=== PATIENT | male | born 1960 | race Caucasian/White ===

== ENCOUNTER 2022-02-24 09:41 | Outpatient (CLI) | payer OTHER, SELFPAY ==
[2022-02-24 13:36] LABS: Chloride* 107 mmol/L (96-114); Potassium* 4.5 mmol/L (3.6-5.1); Sodium* 139 mmol/L (135-149)
[2022-02-24 13:38] LABS: Estimated Glomerular Filt Rate 85 ml/min
[2022-02-24 13:39] LABS: Blood Urea Nitrogen* 19 mg/dL (7-30); Carbon Dioxide* 24 mmol/L (20-32); Glucose* 96 mg/dL (60-115)
[2022-02-24 13:40] LABS: Calcium* 8.8 mg/dL (8.4-10.6)
[2022-02-24 14:09] LABS: PSA Screen* 0.82 ng/mL (0.10-4.00)
== END 2022-02-24 09:42 | disposition home or self-care (01) ==
PROVIDERS: PCP Family Medicine; Visit Provider Family Medicine
DX: I10 Essential (primary) hypertension (principal); Z12.5 Encounter for screening for malignant neoplasm of prostate
CPT/HCPCS: 80048; 84153

== ENCOUNTER 2023-03-02 08:51 | Outpatient (CLI) | payer BC, SELFPAY | END 2023-03-02 08:52 | disposition home or self-care (01) | LOC: LONREF 08:54 | PROVIDERS: PCP Family Medicine; Visit Provider Family Medicine | DX: I10 Essential (primary) hypertension (principal) | CPT/HCPCS: 80048 ==

== ENCOUNTER 2023-10-16 10:30 | Outpatient (CLI) | payer BC, SELFPAY | END 2023-10-16 10:31 | disposition home or self-care (01) | LOC: LKVREF 10:30 | PROVIDERS: PCP Family Medicine; Visit Provider Family Medicine | DX: L29.9 Pruritus, unspecified (principal) | CPT/HCPCS: 80053 ==

== ENCOUNTER 2025-01-09 08:14 | Outpatient (CLI) | payer BC, SELFPAY | END 2025-01-09 08:15 | disposition home or self-care (01) | PROVIDERS: PCP Family Medicine; Visit Provider Family Medicine | DX: I10 Essential (primary) hypertension (principal); Z12.5 Encounter for screening for malignant neoplasm of prostate | CPT/HCPCS: 80048; 80061; G0103 ==